=== PATIENT | male | born 1980 | race Caucasian/White ===

== ENCOUNTER 2020-01-26 18:43 | Emergency (ER) | payer SELFPAY ==
[2020-01-26 18:54] VITALS: BP 121/77
--- NOTE | 2020-01-26 20:14 | ER Document Report ---
HPI - HPI Patient complains to provider of: Fever Time Seen by Provider: 01/26/20 20:03 Onset: Yesterday Onset/Duration: Gradual Quality of pain: No pain Pain Level: Denies Context: Patient presents complaining of fever without any other symptoms. Patient states fever started yesterday and has been as high as 101. Patient denies any cough, sore throat, nausea vomiting or diarrhea. Patient denies any body aches. Patient is wanting tested for Covid. Associated Symptoms: Fever. denies: Body/muscle aches, Nonproductive cough, Diarrhea, Headache, Vomiting Exacerbated by: Denies Relieved by: Denies Similar symptoms previously: No Recently seen / treated by doctor: No - ROS ROS below otherwise negative: Yes Systems Reviewed and Negative: Yes All other systems reviewed and negative - CONSTITUTIONAL Constitutional: REPORTS: Fever - EENT EENT: DENIES: Sore Throat, Congestion - NEURO Neurology: DENIES: Headache - CARDIOVASCULAR Cardiovascular: DENIES: Chest pain - RESPIRATORY Respiratory: DENIES: Trouble Breathing, Coughing - GASTROINTESTINAL Gastrointestinal: DENIES: Patient vomiting, Diarrhea - DERM Skin Color: Normal Skin Problems: None Past Medical History - General Information source: Patient - Social History Smoking Status: Never Smoker Frequency of alcohol use: None Drug Abuse: None Occupation: [employer] Lives with: Family Family History: Reviewed & Not Pertinent - Medical History Medical History: Negative Past Surgical History: Reports: Hx Orthopedic Surgery Vertical Provider Document - CONSTITUTIONAL Agree With Documented VS: Yes Exam Limitations: No Limitations General Appearance: WD/WN, No Apparent Distress Notes: PHYSICAL EXAMINATION: GENERAL: Well-appearing and in no acute distress. HEAD: Atraumatic, normocephalic. EYES: sclera anicteric, conjunctiva are normal. ENT: No rhinorrhea, nares patent. Moist mucous membranes. NECK: Normal range of motion, supple without lymphadenopathy LUNGS: CTAB and equal. No wheezes rales or rhonchi. HEART: Regular rate and rhythm without murmurs ABDOMEN: Soft, nontender EXTREMITIES: Normal range of motion, no pitting edema. No cyanosis. BACK: No CVA tenderness NEUROLOGICAL: Cranial nerves grossly intact. Normal speech. Normal gait. PSYCH: Normal mood, normal affect. SKIN: Warm, Dry, normal turgor, no rashes or lesions noted Course - Re-evaluation Re-evalutation: 01/26/20 20:12 The patient was evaluated during the global Covid 19 pandemic, and that diagnosis was suspected/considered upon their initial presentation. Their evaluation, treatment and testing was consistent with current guidelines for patients who present with complaints or symptoms that may be related to Covid 19. 01/26/20 20:13 Patient denies any symptoms at this time. Patient reports subjective fever. Patient afebrile here. Patient primarily wanting Covid testing. Offered patient influenza testing as well. - Vital Signs Vital signs: Temp Pulse Resp BP Pulse Ox 98.6 F 113 H 16 121/77 97 01/26/20 18:53 01/26/20 18:53 01/26/20 18:53 01/26/20 18:53 01/26/20 18:53 - Laboratory Laboratory results interpreted by me: 01/26/20 21:33 Labs- All tests 24 hr 01/26/20 01/26/20 20:30 20:30 COVID-19 Source See comment Influenza A (Rapid) NEGATIVE Influenza B (Rapid) NEGATIVE Discharge - Discharge Clinical Impression: Encounter for screening laboratory testing for COVID-19 virus Fever Qualifiers: Fever type: due to other condition Qualified Code(s): R50.81 - Fever presenting with conditions classified elsewhere Condition: Stable Disposition: HOME, SELF-CARE Instructions: COVID-19 Guidance for Persons Under Investigation, Fever ([facility]) Additional Instructions: Return immediately for any new or worsening symptoms Followup with your primary care provider, call tomorrow to make a followup appointment Referrals: EMIL WALTON MD [NO LOCAL MD] - Follow up as needed
[2020-01-26 21:19] LABS: A TYPE INFLUENZA AG NEGATIVE (NEGATIVE); B INFLUENZA AG NEGATIVE (NEGATIVE)
== END 2020-01-26 20:15 | disposition home or self-care (01) ==
LOC: ER 18:43
DX: R50.9 Fever, unspecified (principal); Z20.828 Contact with and (suspected) exposure to other viral communicable diseases
CPT/HCPCS: 99283; 87635; 87804; C9803